=== PATIENT | female | born 1980 | race Caucasian/White ===

== ENCOUNTER 2021-07-09 09:35 | Emergency (ER) | payer SELFPAY ==
[2021-07-09 09:39] VITALS: BP 137/81; PULSE 92; TEMP 97.6; BMI 27.3
== END 2021-07-09 11:15 | disposition home or self-care (01) ==
LOC: JERFT 09:35
DX: S09.90XA Unspecified injury of head, initial encounter (principal); S00.03XA Contusion of scalp, initial encounter; W00.0XXA Fall on same level due to ice and snow, initial encounter
CPT/HCPCS: 70450-TC; 99284-25